=== PATIENT | male | born 1990 | race Hispanic/Latino ===

== ENCOUNTER 2018-01-08 00:46 | Emergency (ER) | payer OTHER | END 2018-01-08 01:40 | disposition home or self-care (01) | LOC: EDH 00:46 | DX: T63.461A Toxic effect of venom of wasps, accidental (unintentional), initial encounter (principal); M79.89 Other specified soft tissue disorders; Y92.098 Other place in other non-institutional residence as the place of occurrence of the external cause | CPT/HCPCS: 99281 ==